=== PATIENT | female | born 1995 | race Caucasian/White ===

== ENCOUNTER 2017-06-09 13:49 | Emergency (ER) | payer BC ==
[2017-06-09 16:36] VITALS: BP 111/66
--- NOTE | 2017-06-09 17:02 | UC ---
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 pt's medication reviewed this visit - History of Current Complaint Chief Complaint: UCRespiratory Stated Complaint: FLU SYMPTOMS Time Seen by Provider: 06/09/17 16:38 Hx Obtained From: Patient Hx Last Menstrual Period: 06/02/17 Onset/Duration: Gradual Onset Severity Initially: Mild Severity Currently: Moderate Pain Intensity: 4 Character: Cough: Nonproductive Associated Signs And Symptoms: Positive: URI, Nasal Congestion - Allergies/Home Medications Allergies/Adverse Reactions: Allergies Allergy/AdvReac Type Severity Reaction Status Date / Time No Known Allergies Allergy Verified 06/09/17 16:36 Home Medications: Home Medications Norgestimate-Ethinyl Estradiol [Trinessa Tablet] 1 each PO 06/09/17 [History] PMH/Surg Hx/FS Hx/Imm Hx Previously Healthy: Yes - Surgical History Surgical History: None - Social History Occupation: Employed Full-time Lives: With Family Alcohol Use: Occasionally Substance Use Type: None Smoking Status (MU): Never Smoked Tobacco Review of Systems Constitutional: Fever, Fatigue Skin: Rash - left axilla, tongue Eyes: Negative ENT: Sore Throat, Ear Ache, Nasal Discharge, Sinus Congestion Respiratory: Cough Cardiovascular: Negative Gastrointestinal: Negative Genitourinary: Negative Motor: Negative Neurovascular: Negative Musculoskeletal: Negative Neurological: Negative All Other Systems Reviewed And Are Negative: Yes Physical Exam Triage Information Reviewed: Yes Appearance: Well-Appearing, No Pain Distress, Well-Nourished, Other: - tired appearing Vital Signs: Initial Vital Signs Temp 98.4 F 06/09/17 16:32 Pulse 69 06/09/17 16:32 Resp 18 06/09/17 16:32 BP 111/66 06/09/17 16:32 Pulse Ox 100 06/09/17 16:32 Vital Signs Reviewed: Yes Eye Exam: Normal Eyes: Positive: Conjunctiva Clear ENT: Positive: Hearing grossly normal, Nasal congestion, Nasal drainage, TM bulging, TM red, Other - left Tm + fluid right Tm ++ fluid, erythema turbinates boggy + pnd no exudate, no erythema, uvula midline pt with small, ulcerative appearing lesions on tongue and 3 on left buccal membrane not friable mild TTP. Negative: Pharynx normal, TMs normal, Tonsillar exudate Dental Exam: Normal Neck exam: Normal Neck: Positive: Supple, Nontender, No Lymphadenopathy Respiratory Exam: Normal Respiratory: Positive: Chest non-tender, Lungs clear, Normal breath sounds, No respiratory distress, No accessory muscle use Cardiovascular Exam: Normal Cardiovascular: Positive: RRR, No Murmur Abdominal Exam: Normal Abdomen Description: Positive: Nontender, No Organomegaly Bowel Sounds: Positive: Present Musculoskeletal Exam: Normal Neurological Exam: Normal Psychological Exam: Normal Skin: Positive: Other - tongue lesion as in HEENT Pt with small inflammed follicle left axilla - no fluctuance, no drainage, no warmth UC Diagnostic Evaluation - Laboratory O2 Sat by Pulse Oximetry: 100 Respiratory Course/Dx - Course Course Of Treatment: pt with right OM, left fluid. turbinates boggy with PND. ot with viral-type lesions on buccal membrane and tongue. no lesions on hands. d/w pt at length. Abx for ear. flonase. secrtion precaution. motrin/apap. rest. work note. pt comfortable and in agreement with plan - Differential Dx/Diagnosis Provider Diagnoses: otitis media. viral URI. inflammed follicle Discharge - Discharge Plan Condition: Stable Disposition: HOME Prescriptions: Amoxicillin PO (*) [Amoxicillin 875 MG (*)] 875 mg PO BID #20 tab Fluticasone NASAL SPRAY 50MCG* [Flonase NASAL SPRAY 50MCG*] 1 spray BOTH NARES DAILY #1 btl Patient Education Materials: Ear Infection (ED), Upper Respiratory Infection ( ED) Forms: *Work Release Referrals: Katie Cruz MD [Primary Care Provider] - Additional Instructions: - Stay well hydrated. Drink plenty of non-alcoholic, non-caffinated beverages. - Alternate ibuprofen (Advil, Motrin) 600mg and Tylenol every 3 hours for pain or fever. Take with food. Do NOT take for more than 4-5 days. - These infections are spread by secretions - do NOT share eating or drinking utensils - clean items you share with other people such as cell phones, computer mouse, TV remote, computer tablets, etc. After you have taken antibiotics for 2 days, change your toothbrush and your pillowcase. - get plenty of restful sleep - humidify the air in the room where you sleep - boil water, run a hot steam shower, vaporizer, cups of water by heat register - okay to take over the counter decongestant and cough medication - use nasal spray as prescribed - get plenty of restful sleep. - contact your doctor or return with questions or concerns
[2017-06-09] MEDS ORDERED: Amoxicillin PO (*) 875 MG TAB PO SCH (21:00)
== END 2017-06-09 17:22 | disposition home or self-care (01) ==
LOC: UCCORT 13:49
DX: H66.91 Otitis media, unspecified, right ear (principal); J06.9 Acute upper respiratory infection, unspecified; L73.9 Follicular disorder, unspecified; Z72.89 Other problems related to lifestyle
CPT/HCPCS: 87502; 99202; G0463

== ENCOUNTER 2018-11-30 16:20 | Emergency (ER) | payer BC ==
[2018-11-30 17:53] VITALS: BP 110/63
--- NOTE | 2018-11-30 18:20 | UC ---
General HPI - HPI Summary HPI Summary: per triage, ONSET ABOUT 5 DAYS AGO WITH FATIUGE,BODY ACHES, SWOLLEN GLANDS. THEN SORE THROAT AND EAR PAIN, SINUS AND CHEST CONGESITON , CHEST FEELS NIGHT. NO FEVER SHE IS AWARE OF. NO N/V/D. PT ALSO ADDS SHE HAD A REGULAR PERIOD THAT LASTED ONE WEEK STARTED November, THEN SHE HAD SOME SPOTTING ON THE November no cp or asthma. - History of Current Complaint Chief Complaint: UCRespiratory Stated Complaint: SOB,CONGESTION, CHEST TIGHTNESS,B/L EAR Time Seen by Provider: 11/30/18 17:43 Hx Obtained From: Patient Hx Last Menstrual Period: 11/17/18 Onset/Duration: Gradual Onset Timing: Constant Pain Intensity: 8 - Allergy/Home Medications Allergies/Adverse Reactions: Allergies Allergy/AdvReac Type Severity Reaction Status Date / Time No Known Allergies Allergy Verified 11/30/18 17:42 PMH/Surg Hx/FS Hx/Imm Hx Previously Healthy: Yes - Surgical History Surgical History: None - Family History Known Family History: Positive: Non-Contributory - Social History Occupation: Employed Full-time Alcohol Use: Occasionally Substance Use Type: None Smoking Status (MU): Never Smoked Tobacco Review of Systems All Other Systems Reviewed And Are Negative: Yes Constitutional: Positive: Fatigue. Negative: Fever, Chills ENT: Positive: Sore Throat, Ear Ache, Nasal Discharge, Sinus Congestion Respiratory: Positive: Shortness Of Breath, Cough Cardiovascular: Negative: Palpitations, Chest Pain Physical Exam Triage Information Reviewed: Yes Appearance: Well-Appearing Vital Signs: Initial Vital Signs Temp 98.1 F 11/30/18 17:43 Pulse 72 11/30/18 17:43 Resp 14 11/30/18 17:43 BP 110/63 11/30/18 17:43 Pulse Ox 100 11/30/18 17:43 Vital Signs Reviewed: Yes Eyes: Positive: Conjunctiva Clear ENT: Positive: Pharynx normal, Nasal congestion, Nasal drainage - clear, TMs normal - L, TM red - R Neck: Positive: Supple, Nontender, No Lymphadenopathy Respiratory: Positive: Lungs clear, No respiratory distress, Decreased breath sounds - mildly. Negative: Crackles, Rhonchi, Wheezing Cardiovascular: Positive: RRR, No Murmur Abdomen Description: Positive: Nontender Musculoskeletal: Positive: ROM Intact Neurological: Positive: Alert Psychological: Positive: Age Appropriate Behavior Skin Exam: Normal Course/Dx - Differential Dx - Multi-Symptom Differential Diagnoses: Other - non toxic. R OM on exam with s/s'x5 days thus will tx. will use augmentin to cover the ear plus sinuses and lungs. - Diagnoses Provider Diagnosis: Otitis media, URI (upper respiratory infection), Bronchitis Discharge - Sign-Out/Discharge Documenting (check all that apply): Patient Departure All imaging exams completed and their final reports reviewed: No Studies - Discharge Plan Condition: Stable Disposition: HOME Prescriptions: Albuterol HFA INHALER* [Ventolin HFA Inhaler*] 2 puff INH Q6H #1 mdi Amoxicillin/Clavulanate TAB* [Augmentin TAB 875*] 875 mg PO BID 10 Days #20 tab predniSONE [Prednisone 20 MG TAB] 40 mg PO DAILY 3 Days #6 tablet Patient Education Materials: Ear Infection (ED), Upper Respiratory Infection ( DC), Acute Bronchitis (ED) Forms: *Work Release Referrals: Joan Arango [Primary Care Provider] - 7 Days - Billing Disposition and Condition Condition: STABLE Disposition: Home - Attestation Statements Provider Attestation: Per institutional requirements, I have reviewed the chart, however, I was not consulted specifically or made aware of this patient by the midlevel provider. I did not personally evaluate, interact with , or disposition this patient.
== END 2018-11-30 18:28 | disposition home or self-care (01) ==
LOC: UCCORT 16:20
DX: H66.91 Otitis media, unspecified, right ear (principal); J06.9 Acute upper respiratory infection, unspecified; J40 Bronchitis, not specified as acute or chronic
CPT/HCPCS: 99212; G0463

== ENCOUNTER 2019-03-22 18:57 | Emergency (ER) | payer BC ==
[2019-03-22 19:39] VITALS: BP 118/73
--- NOTE | 2019-03-22 19:41 | UC ---
Throat Pain/Nasal Henrik HPI - HPI Summary HPI Summary: 23 yo female presents with flu like symptoms. She tells me that for 2 days she has had fatigue, sore throat, and body aches. She has not taken anything OTC for her symptoms. Has felt feverish, but has not taken her temperature. 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 Denies sinus symptoms, cough, rash, abdominal pain, n/v - History of Current Complaint Chief Complaint: UCRespiratory Stated Complaint: SORE THROAT, COLD SYMPTOMS Time Seen by Provider: 03/22/19 19:40 Hx Obtained From: Patient Hx Last Menstrual Period: 3 weeks ago Onset/Duration: Sudden Onset Severity: Moderate Pain Intensity: 5 Pain Scale Used: 0-10 Numeric - Allergies/Home Medications Allergies/Adverse Reactions: Allergies Allergy/AdvReac Type Severity Reaction Status Date / Time No Known Allergies Allergy Verified 03/22/19 19:39 PMH/Surg Hx/FS Hx/Imm Hx Respiratory History: Asthma - Surgical History Surgical History: None - Family History Known Family History: Positive: Non-Contributory - Social History Occupation: Employed Full-time Lives: With Family Alcohol Use: Occasionally Substance Use Type: None Smoking Status (MU): Never Smoked Tobacco Review of Systems All Other Systems Reviewed And Are Negative: No Constitutional: Positive: Fatigue, Other - Body aches Skin: Positive: Negative Eyes: Positive: Negative ENT: Positive: Sore Throat Respiratory: Positive: Negative Cardiovascular: Positive: Negative Gastrointestinal: Positive: Negative Neurovascular: Positive: Negative Neurological: Positive: Negative Psychological: Positive: Negative Physical Exam - Summary Physical Exam Summary: GENERAL: NAD. WDWN. No pain distress. SKIN: No rashes, sores, lesions, or open wounds. HEENT: Head: AT/NC Eyes: EOM intact. Conjunctiva clear without inflammation or discharge. Ears: Hearing grossly normal. TMs intact, no bulging, erythema, or edema. Nose: Nasal mucosa pink and moist. NTTP maxillary and frontal sinus. Throat: Posterior oropharynx without exudates, erythema, or tonsillar enlargement. Uvula midline. NECK: Supple. Nontender. No lymphadenopathy. CHEST: CTAB. No accessory muscle use. Breathing comfortably and in no distress. CV: RRR. Pulses intact. Cap refill <2seconds NEURO: Alert. PSYCH: Age appropriate behavior. Triage Information Reviewed: Yes Vital Signs: Initial Vital Signs Temp 99.1 F 03/22/19 19:36 Pulse 92 03/22/19 19:36 Resp 16 03/22/19 19:36 BP 118/73 03/22/19 19:36 Pulse Ox 100 03/22/19 19:36 Laboratory Tests 03/22/19 19:59 Influenza A (Rapid) Negative Influenza B (Rapid) Negative Vital Signs Reviewed: Yes Throat Pain/Nasal Course/Dx - Course Course Of Treatment: POC flu negative. Suspect viral illness. Advised to take tylenol/ibuprofen as directed for discomfort and f/u if symptoms do not improve - Differential Dx/Diagnosis Provider Diagnosis: Viral syndrome Discharge ED - Sign-Out/Discharge Documenting (check all that apply): Patient Departure All imaging exams completed and their final reports reviewed: No Studies - Discharge Plan Condition: Stable Disposition: HOME Patient Education Materials: Viral Syndrome (ED) Referrals: Joan Arango [Primary Care Provider] - Additional Instructions: If you develop a fever, shortness of breath, chest pain, new or worsening symptoms - please call your PCP or go to the ED immediately. Your flu test was negative today Your symptoms are likely from a viral infection. Viral infections do not respond to antibiotics and are limited to the treatment of symptoms. Viral infections typically run their course in 7-10 days. Drink plenty of fluids, especially if you are running any fever. Use salt water gargles several times a day. Take over the counter acetaminophen (Tylenol) or ibuprofen (Advil, Motrin) according to directions as needed for pain or fever. You may also use Chloraseptic spray or Cepacol lonzenges according to directions which contain a numbing medication and can provide some temporary relief from a sore throat. Return here or follow up with your primary care provider in 7 days if symptoms persist. - Billing Disposition and Condition Condition: STABLE Disposition: Home
[2019-03-22 20:11] LABS: Influenza A Molecular NEGATIVE (Negative); Influenza B Molecular NEGATIVE (Negative)
== END 2019-03-22 20:25 | disposition home or self-care (01) ==
LOC: UCEAST 18:57
DX: B34.9 Viral infection, unspecified (principal); J02.9 Acute pharyngitis, unspecified; R53.83 Other fatigue; J45.909 Unspecified asthma, uncomplicated
CPT/HCPCS: 99211; G0463

== ENCOUNTER 2019-07-13 15:08 | Emergency (ER) | payer BC ==
[2019-07-13 15:54] VITALS: BP 129/75
[2019-07-13 16:43] LABS: Influenza A Molecular Negative (Negative); Influenza B Molecular Negative (Negative)
--- NOTE | 2019-07-13 18:00 | UC ---
Respiratory Complaint HPI - HPI Summary HPI Summary: 23-year-old female presents with 2 week history of occasionally productive cough. Today patient had an sudden onset of shortness of breath with a sharp pain in her mid chest that radiated through to her back. States the episode lasted several minutes. She is currently pain-free. No recent travel or known sick contact. Denies fever, chills, nasal congestion, runny nose, sore throat, wheezing, abdominal pain, nausea, or vomiting. - History of Current Complaint Chief Complaint: UCRespiratory Stated Complaint: CHEST TIGHTNESS Time Seen by Provider: 07/13/19 17:29 Hx Obtained From: Patient Hx Last Menstrual Period: 3 weeks Pain Intensity: 7 - Allergies/Home Medications Allergies/Adverse Reactions: Allergies Allergy/AdvReac Type Severity Reaction Status Date / Time No Known Allergies Allergy Verified 07/13/19 15:16 Home Medications: Home Medications Norgestimate-Ethinyl Estradiol [Trinessa Tablet] 1 each PO DAILY 06/09/17 [ History Confirmed 07/13/19] Azithromyxin ONI (NF) [Z-Oni (Zithromax) 250 mg tabs #6] 2 tab PO .TODAY, THEN 1 DAILY #6 tab 07/13/19 [Rx] Benzonatate CAP* [Tessalon 100 MG CAP*] 100 mg PO TID PRN #21 cap 07/13/19 [Rx] PMH/Surg Hx/FS Hx/Imm Hx Previously Healthy: Yes - Denies significant PMH - Surgical History Surgical History: None - Family History Family History: Denies significant FMH - Social History Occupation: Employed Full-time Lives: Alone Alcohol Use: Occasionally Substance Use Type: None Smoking Status (MU): Never Smoked Tobacco Review of Systems All Other Systems Reviewed And Are Negative: Yes Constitutional: Negative: Fever, Chills Eyes: Negative: Drainage, Eye Redness ENT: Negative: Sore Throat, Ear Ache, Nasal Discharge, Sinus Congestion, Sinus Pain/Tenderness Respiratory: Positive: Shortness Of Breath, Cough Cardiovascular: Positive: Chest Pain. Negative: Palpitations Gastrointestinal: Negative: Abdominal Pain, Vomiting, Nausea Genitourinary: Positive: Negative Musculoskeletal: Negative: Myalgia Neurological/Mental Status: Negative: Headache Physical Exam - Summary Physical Exam Summary: GENERAL APPEARANCE: Well developed, well nourished, alert and cooperative, and appears to be in no acute distress. EYES: Conjunctiva clear. No drainage. EARS: External auditory canals and tympanic membranes clear, hearing grossly intact. NOSE: No nasal discharge. THROAT: Pharynx normal No tonsilar inflammation, swelling, exudate, or lesions. Uvula midline. NECK: Neck supple, non-tender without lymphadenopathy. CARDIAC: Normal S1 and S2. No S3, S4 or murmurs. Rhythm is regular. There is no peripheral edema, cyanosis or pallor. Extremities are warm and well perfused. Capillary refill is less than 2 seconds. Peripheral pulses intact. LUNGS: Clear to auscultation without rales, rhonchi, wheezing or diminished breath sounds. Loose nonproductive cough. ABDOMEN: Positive bowel sounds. Soft, nondistended, nontender. No guarding or rebound. No masses or hepatosplenomegally. MUSKULOSKELETAL: ROM intact to all extremities. No joint erythema or tenderness. Normal muscular development. Normal gait. SKIN: Skin normal color, texture and turgor with no lesions or eruptions. Triage Information Reviewed: Yes Vital Signs: Initial Vital Signs Temp 99 F 07/13/19 15:12 Pulse 87 07/13/19 15:12 Resp 17 07/13/19 15:12 BP 140/89 07/13/19 15:12 Pulse Ox 100 07/13/19 15:12 Vital Signs Reviewed: Yes Diagnostics - Radiology No standard instances Radiology Interpretation Completed By: ED Physician - No acute cardiopulmonary pathology Respiratory Course/Dx - Course Course Of Treatment: 23-year-old female presents with 2 week history of occasionally productive cough. Today patient had an sudden onset of shortness of breath with a sharp pain in her mid chest that radiated through to her back. States the episode lasted several minutes. She is currently pain-free. No recent travel or known sick contact. Denies fever, chills, nasal congestion, runny nose, sore throat, wheezing, abdominal pain, nausea, or vomiting. Afebrile. Vital signs stable. Patient had an overall unremarkable exam except for a loose nonproductive cough. Preliminary reading of the chest x-ray showed no acute cardiopulmonary pathology. Results were reviewed with the patient. Considering the duration of her symptoms will treat her for an acute bronchitis with a course of azithromycin and provide her with Tessalon Perles to use as needed for cough. She is to return here or follow up with her primary care provider in 5-7 days if symptoms persist. Anticipatory guidance and warning symptoms reviewed with the patient. Verbalizes understanding and agrees with plan of care. - Differential Dx/Diagnosis Differential Diagnosis/HQI/PQRI: Bronchitis, Influenza, Lower Resp Infection, Sinusitis Provider Diagnosis: Acute bronchitis Discharge ED - Sign-Out/Discharge Documenting (check all that apply): Patient Departure All imaging exams completed and their final reports reviewed: No - Discharge Plan Condition: Stable Disposition: HOME Prescriptions: Azithromyxin ONI (NF) [Z-Oni (Zithromax) 250 mg tabs #6] 2 tab PO .TODAY, THEN 1 DAILY #6 tab Benzonatate CAP* [Tessalon 100 MG CAP*] 100 mg PO TID PRN #21 cap PRN Reason: Cough Patient Education Materials: Acute Bronchitis (ED) Forms: *Work Release Referrals: Laila Crabtree NP [Primary Care Provider] - 5 Days Additional Instructions: Your history and exam are consistent with acute bronchitis. Considering the duration of your symptoms we will treat you with an antibiotic for the infection. Take azithormycin 2 tabs today then 12 tab a day for the next 4 days. Be aware that the cough with bronchitis may persist for 2-3 weeks even after treatment. Get plenty of rest. Drink plenty of fluids. Run a cool mist humidifer in your room at night. Take over the counter acetaminophen (Tylenol) or ibuprofen (Advil, Motrin) according to directions as needed for pain or fever. Take Tessalon Perles 1 cap every 8 hours as needed for cough. Return here or follow up with your primary care provider in 5-7 days if symptoms do not improve. Seek immediate medical attention in the emergency room if you have fever greater than 100.5 F despite taking acetaminophen or ibuprofen, have chest pain , difficulty breathing, or have any worsening of symptoms. - Billing Disposition and Condition Condition: STABLE Disposition: Home
== END 2019-07-13 19:00 | disposition home or self-care (01) ==
LOC: UCEAST 15:08
DX: J40 Bronchitis, not specified as acute or chronic (principal)
CPT/HCPCS: 71046; 99212; G0463